=== PATIENT | male | born 1950 | race Caucasian/White ===

== ENCOUNTER 2020-08-31 16:25 | Emergency (ER) | payer OTHER ==
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
[2020-08-31 17:40] VITALS: BP 152/101; TEMP 97.5; O2SAT 98
== END 2020-08-31 17:41 | disposition home or self-care (01) ==
LOC: ER 16:25
DX: Z04.3 Encounter for examination and observation following other accident (principal); R03.0 Elevated blood-pressure reading, without diagnosis of hypertension; V49.49XA Driver injured in collision with other motor vehicles in traffic accident, initial encounter; Y92.410 Unspecified street and highway as the place of occurrence of the external cause